=== PATIENT | female | born 1950 | race Caucasian/White ===

== ENCOUNTER 2021-01-25 13:24 | Emergency (ER) | payer MEDICARE, BC ==
[2021-01-25] MEDS ORDERED: Sodium Chloride 0.9% 10 ML Syringe FLUSH PRN (14:01)
--- NOTE | 2021-01-25 14:10 | EDM.PDOC ---
ED HPI GENERAL MEDICAL PROBLEM - General Chief Complaint: Respiratory Problem Stated Complaint: COVID+ SOB Time Seen by Provider: 01/25/21 13:44 Source of Information: Reports: Patient, RN Notes Reviewed History Limitations: Reports: No Limitations - History of Present Illness INITIAL COMMENTS - FREE TEXT/NARRATIVE: Patient is a 70-year-old female who presents to the ER for the evaluation of her [id number] symptoms. Patient states she has been feeling ill for about 10 days now. She did take an at-home Covid screen and she states that this did return positive. She presents to the ER today because she feels like she is getting more short of breath. She has not had any other GI symptoms like nausea/vomiting/diarrhea, but has had a dry cough, feelings of shortness of breath, loss of appetite, and generalized fatigue/body aches. Other than being obese with a BMI of 40 and some hypertension, patient is denying any other major past medical history of any sort of cardiac history or any sort of lung history, or any other diabetic issues. Generalized Pain Score (Numeric/FACES): 8 - Related Data Allergies Allergy/AdvReac Type Severity Reaction Status Date / Time No Known Allergies Allergy Verified 01/25/21 13:42 Home Meds: Home Meds amLODIPine [Norvasc] 0 mg PO DAILY 01/25/21 [History] Past Medical History Cardiovascular History: Reports: Hypertension Endocrine/Metabolic History: Reports: Obesity/BMI 30+ - Infectious Disease History Infectious Disease History: Reports: Novel Coronavirus (01/2021) - Past Surgical History Musculoskeletal Surgical History: Reports: Other (See Below) Other Musculoskeletal Surgeries/Procedures:: Bunion Surgery Social & Family History - Tobacco Use Tobacco Use Status *Q: Never Tobacco User - Caffeine Use Caffeine Use: Reports: Coffee - Recreational Drug Use Recreational Drug Use: No ED ROS GENERAL - Review of Systems Review Of Systems: Comprehensive ROS is negative, except as noted in HPI. ED EXAM, GENERAL - Physical Exam Exam: See Below Exam Limited By: No Limitations General Appearance: Alert, WD/WN, No Apparent Distress Respiratory/Chest: No Respiratory Distress, Lungs Clear, Normal Breath Sounds, No Accessory Muscle Use, Chest Non-Tender Cardiovascular: Normal Peripheral Pulses, Regular Rate, Rhythm, No Edema Extremities: Normal Inspection, Normal Capillary Refill Neurological: Alert, Oriented, Normal Cognition, No Motor/Sensory Deficits Psychiatric: Normal Affect, Normal Mood Skin Exam: Warm, Dry, Intact, Normal Color, No Rash Course - Vital Signs Last Recorded V/S: Last Vital Signs Temp 97.7 F 01/25/21 13:38 Pulse 81 01/25/21 13:38 Resp 16 01/25/21 13:38 BP 158/89 H 01/25/21 13:38 Pulse Ox 85 L 01/25/21 13:38 - Orders/Labs/Meds Orders: Active Orders 24 hr Category Date Time Status Peripheral IV Care [RC] . DIRECTED Care 01/25/21 14:02 Ordered Vital Signs [RC] Q15M Care 01/25/21 15:02 Ordered EPINEPHrine [Adrenalin] Med 01/25/21 15:02 Active 0.3 mg IM ASDIRECTED PRN Famotidine [Pepcid] Med 01/25/21 15:02 Active 20 mg IVPUSH ASDIRECTED PRN Sodium Chloride 0.9% [Saline Flush] Med 01/25/21 14:01 Active 10 ml FLUSH ASDIRECTED PRN Sodium Chloride 0.9% [Saline Flush] Med 01/25/21 15:15 Active 30 ml FLUSH ASDIRECTED diphenhydrAMINE [Benadryl] Med 01/25/21 15:02 Active 50 mg IVPUSH ASDIRECTED PRN methylPREDNISolone Sod Succ [Solu-MEDROL] Med 01/25/21 15:02 Active 125 mg IVPUSH ASDIRECTED PRN Peripheral IV Insertion Adult [OM.PC] Routine Oth 01/25/21 14:02 Ordered Medication Orders Diphenhydramine HCl (Diphenhydramine 50 Mg/Ml Sdv) 50 mg IVPUSH ASDIRECTED PRN PRN Reason: hypersensitivity reaction Epinephrine HCl (Epinephrine 1 Mg/Ml Sdv) 0.3 mg IM ASDIRECTED PRN PRN Reason: hypersensitivity reaction Famotidine (Famotidine 20 Mg/2 Ml Sdv) 20 mg IVPUSH ASDIRECTED PRN PRN Reason: hypersensitivity reaction Methylprednisolone Sodium Succinate (Methylprednisolone Sodium Succinate 125 Mg/2 Ml Sdv) 125 mg IVPUSH ASDIRECTED PRN PRN Reason: hypersensitivity reaction Sodium Chloride (Sodium Chloride 0.9% 10 Ml Syringe) 10 ml FLUSH ASDIRECTED PRN PRN Reason: Keep Vein Open Sodium Chloride (Sodium Chloride 0.9% 10 Ml Syringe) 30 ml FLUSH ASDIRECTED [facility] Labs: Laboratory Tests 01/25/21 01/25/21 01/25/21 Range/Units 13:46 14:25 14:25 WBC 4.75 (3.98-10.04) K/mm3 RBC 4.09 (3.98-5.22) M/mm3 Hgb 11.0 L (11.2-15.7) gm/dl Hct 35.2 (34.1-44.9) % MCV 86.1 D (79.4-94.8) fl MCH 26.9 (25.6-32.2) pg MCHC 31.3 L (32.2-35.5) g/dl RDW Std Deviation 48.8 H (36.4-46.3) fL Plt Count 157 L D (182-369) K/mm3 MPV 11.7 (9.4-12.3) fl Neut % (Auto) 60.8 (34.0-71.1) % Lymph % (Auto) 27.4 (19.3-51.7) % Crisp % (Auto) 11.6 (4.7-12.5) % Eos % (Auto) 0 L (0.7-5.8) Baso % (Auto) 0.2 (0.1-1.2) % Neut # (Auto) 2.89 (1.56-6.13) K/mm3 Lymph # (Auto) 1.30 (1.18-3.74) K/mm3 Crisp # (Auto) 0.55 H (0.24-0.36) K/mm3 Eos # (Auto) 0.00 L (0.04-0.36) K/mm3 Baso # (Auto) 0.01 (0.01-0.08) K/mm3 Manual Slide Review Abnormal smear Sodium 137 (136-145) mEq/L Potassium 3.4 L (3.5-5.1) mEq/L Chloride 100 (98-107) mEq/L Carbon Dioxide 26 (21-32) mEq/L Anion Gap 14.4 (5-15) BUN 13 (7-18) mg/dL Creatinine 1.1 H (0.55-1.02) mg/dL Est Cr Clr Drug Dosing 40.49 mL/min Estimated GFR (MDRD) 49 (>60) mL/min BUN/Creatinine Ratio 11.8 L (14-18) Glucose 113 H (70-99) mg/dL Calcium 8.0 L (8.5-10.1) mg/dL Total Bilirubin 0.3 (0.2-1.0) mg/dL AST 33 (15-37) U/L ALT 24 (14-59) U/L Alkaline Phosphatase 82 (46-116) U/L C-Reactive Protein 7.9 H* (<1.0) mg/dL Total Protein 7.0 (6.4-8.2) g/dl Albumin 3.0 L (3.4-5.0) g/dl Globulin 4.0 gm/dL Albumin/Globulin Ratio 0.8 L (1-2) Influenza Type A RNA Negative (NEGATIVE) Influenza Type B RNA Negative (NEGATIVE) SARS-CoV-2 RNA (KA[facility]) Positive H (NEGATIVE) Meds: Medications Generic Name Dose Route Start Last Admin Trade Name Freq PRN Reason Stop Dose Admin Diphenhydramine HCl 50 mg 01/25/21 15:02 Diphenhydramine 50 Mg/Ml Sdv IVPUSH ASDIRECTED PRN hypersensitivity reaction Epinephrine HCl 0.3 mg 01/25/21 15:02 Epinephrine 1 Mg/Ml Sdv IM ASDIRECTED PRN hypersensitivity reaction Famotidine 20 mg 01/25/21 15:02 Famotidine 20 Mg/2 Ml Sdv IVPUSH ASDIRECTED PRN hypersensitivity reaction Methylprednisolone Sodium Succinate 125 mg 01/25/21 15:02 Methylprednisolone Sodium Succinate 125 Mg/2 Ml Sdv IVPUSH ASDIRECTED PRN hypersensitivity reaction Sodium Chloride 10 ml 01/25/21 14:01 Sodium Chloride 0.9% 10 Ml Syringe FLUSH ASDIRECTED PRN Keep Vein Open Sodium Chloride 30 ml 01/25/21 15:15 Sodium Chloride 0.9% 10 Ml Syringe FLUSH ASDIRECTED MORRO Discontinued Medications Generic Name Dose Route Start Last Admin Trade Name Freq PRN Reason Stop Dose Admin Bamlanivimab 700 mg/ 160 mls @ 310 mls/hr 01/25/21 15:30 01/25/21 15:48 Etesevimab 1,400 mg/ Sodium IV 01/25/21 16:00 310 mls/hr Chloride ONETIME ONE Administration - Re-Assessments/Exams Free Text/Narrative Re-Assessment/Exam: 01/25/21 14:08 Patient presents to the ER for the evaluation of the COVID-19 symptoms. A Covid 19/flu swab were obtained at time of triage. We will go ahead and get a IV placed, get basic labs including CBC, CMP and a CRP and a basic chest x-ray for evaluation. Highly likely the patient does in fact have COVID-19. Patient would be a candidate for monoclonal antibody therapy. 01/25/21 15:03 Patient is positive for COVID-19 at this time. CBC has resulted and is unremarkable. CMP and CRP are still resulting. I spoke with the patient to provide information about monoclonal antibody treatment. I offered them the "Patient and caregiver EUA monoclonal antibiotic fact sheet" to read and review. I stated that the drug has been approved by an emergency use authorization (EUA) process and has not been fully FDA reviewed or approved. The patient meets the EUA requirements. I discussed there are other potential treatment options that are currently not FDA approved to treat COVID-19. I did offer an opportunity to ask questions and all questions were answered. The patient voiced understanding and agreed to proceed with the treatment. 01/25/21 15:05 Patient's chest x-ray has been read as increased density within the patient's chest, suspicious for Covid pneumonia at this time. Departure - Departure Time of Disposition: 17:14 Disposition: Home, Self-Care 01 Condition: Good Clinical Impression: COVID-19 - Discharge Information *PRESCRIPTION DRUG MONITORING PROGRAM REVIEWED*: No *COPY OF PRESCRIPTION DRUG MONITORING REPORT IN PATIENT MANN: No Instructions: Prone Position Therapy, 10 Things You Can Do to Manage Your COVID-19 Symptoms at Home - [facility] (10/28/2020) Referrals: Solange Arechiga [employer]ER [Nurse Practitioner] - Forms: ED Department Discharge Additional Instructions: You were seen in the ER today for ongoing and/or worsening respiratory symptoms. Your chest x-ray showed minimal signs of a viral pneumonia typical for COVID-19 at this time. Your oxygen levels were acceptable upon discharge at 91-92% on room air. You were given IV monoclonal antibody therapy at today's visit, this medication is thought to work by making you a little less sick, and helps to decrease the length of time that you are sick. Please try to increase your oral fluid intake, and eat multiple small meals throughout the day, to keep yourself healthy. You need to keep yourself nourished in order to fight off this disease. You can try a liquid diet like gatorade/powerade as well to get your electrolytes. You may take 500 mg Tylenol every hours 6 hours for pain/fever relief. Do not exceed 4000 mg Tylenol in a 24-hour time span. However, running a fever is your body's natural response to illness, and it allows the body to develop antibodies to disease, we are recommending trying to limit the use of Tylenol as much as possible to allow your body's natural immune response. Recommend you obtain a pulse oximeter and monitor your oxygen levels at home, you should place the monitor on your finger, and sit in a calm, quiet position for a few minutes and then record the number that is on the screen. If this consistently below 90% on room air without movement, this would be cause for concern to come back to the hospital for further management of your COVID-19 disease. Please follow all guidance set forth from [facility], regarding isolation purposes for your disease process. General isolation times are 10 days from when you started being symptomatic. Sepsis Event Note (ED) - Evaluation Sepsis Screening Result: No Definite Risk - Focused Exam Vital Signs: Vital Signs Temp Pulse Resp BP Pulse Ox 01/25/21 13:38 97.7 F 81 16 158/89 H 85 L - My Orders Last 24 Hours: My Active Orders 01/25/21 14:01 Sodium Chloride 0.9% [Saline Flush] 10 ml FLUSH ASDIRECTED PRN 01/25/21 14:02 Peripheral IV Care [RC] . DIRECTED Peripheral IV Insertion Adult [OM.PC] Routine 01/25/21 15:02 Vital Signs [RC] Q15M EPINEPHrine [Adrenalin] 0.3 mg IM ASDIRECTED PRN Famotidine [Pepcid] 20 mg IVPUSH ASDIRECTED PRN diphenhydrAMINE [Benadryl] 50 mg IVPUSH ASDIRECTED PRN methylPREDNISolone Sod Succ [Solu-MEDROL] 125 mg IVPUSH ASDIRECTED PRN 01/25/21 15:15 Sodium Chloride 0.9% [Saline Flush] 30 ml FLUSH ASDIRECTED - Assessment/Plan Last 24 Hours: My Active Orders 01/25/21 14:01 Sodium Chloride 0.9% [Saline Flush] 10 ml FLUSH ASDIRECTED PRN 01/25/21 14:02 Peripheral IV Care [RC] . DIRECTED Peripheral IV Insertion Adult [OM.PC] Routine 01/25/21 15:02 Vital Signs [RC] Q15M EPINEPHrine [Adrenalin] 0.3 mg IM ASDIRECTED PRN Famotidine [Pepcid] 20 mg IVPUSH ASDIRECTED PRN diphenhydrAMINE [Benadryl] 50 mg IVPUSH ASDIRECTED PRN methylPREDNISolone Sod Succ [Solu-MEDROL] 125 mg IVPUSH ASDIRECTED PRN 01/25/21 15:15 Sodium Chloride 0.9% [Saline Flush] 30 ml FLUSH ASDIRECTED
[2021-01-25 14:51] LABS: CORONAVIRUS COVID-19 NAA POSITIVE (NEGATIVE)
--- NOTE | 2021-01-25 14:54 | CR ---
Chest: Frontal view of the chest was obtained. Comparison: No prior chest imaging is available. Increased density is seen within the left mid lung. More diffuse density is noted within the right upper and right lower lung. Heart size and mediastinum are normal. Mild scoliosis is noted within the spine with scattered degenerative change also noted within the spine. Impression: 1. Increased density within the chest which is suspicious for COVID pneumonia. Please correlate. 2. Other findings believed to be chronic as described above. Diagnostic code #3
[2021-01-25] MEDS ORDERED: EPINEPHrine 1 MG/ML SDV IM PRN (15:02)
[2021-01-25] MEDS ORDERED: diphenhydrAMINE 50 MG/ML SDV IVPUSH PRN (15:02)
[2021-01-25] MEDS ORDERED: methylPREDNISolone Sodium Succinate 125 MG/2 ML SDV IVPUSH PRN (15:02)
[2021-01-25] MEDS ORDERED: Famotidine 20 MG/2 ML SDV IVPUSH PRN (15:02)
[2021-01-25] MEDS ORDERED: Sodium Chloride 0.9% 10 ML Syringe FLUSH SCH (15:15)
[2021-01-25] MEDS ORDERED: Bamlanivimab 700 MG, ETESEVIMAB 1,400 MG in Sodium Chloride 0.9% 100 ML IV ONE (15:30)
== END 2021-01-25 17:30 | disposition home or self-care (01) ==
LOC: JD.ED 13:24
DX: U07.1 COVID-19 (principal); I10 Essential (primary) hypertension; E66.9 Obesity, unspecified; Z68.41 Body mass index [BMI] 40.0-44.9, adult
CPT/HCPCS: 0240U; 36415; 71045; 71045-26; 80053; 85025; 86140; 96365; 99283-25; Q0245